=== PATIENT | female | born 1955 | race Caucasian/White ===

== ENCOUNTER 2018-04-17 10:37 | Emergency (ER) | payer MEDICARE, MEDICAID ==
[~2018-04-17] VITALS: Ht 162.6 cm; Wt 64.0 kg
[2018-04-17] MEDS ORDERED: KETOROLAC 60MG/2ML VIAL IM ONE (12:30)
[2018-04-17] MEDS ORDERED: ACETAMINOPHEN 325MG TABLET PO ONE (12:30)
[2018-04-17 13:12] LABS: HEMATOCRIT. 33.7 % (36.0-48.0); HEMOGLOBIN. 11.5 g/dL (12.0-16.0); MEAN CORPUSCULAR HEMOGLOBIN 29.8 pg (28.0-32.0); MEAN CORPUSCULAR VOLUME 87.3 fL (81.0-99.0); MEAN PLATELET VOLUME 8.5 fl (7.4-10.4); PLATELET 205 x1000/uL (130-400); RED BLOOD CELL COUNT 3.87 mill/uL (4.2-5.4); RED CELL DISTRIBUTION WIDTH 14.1 % (11.6-14.6)
[2018-04-17 13:26] LABS: PLATELET ESTIMATE NORMAL
[2018-04-17 14:55] VITALS: BP 100/56
== END 2018-04-17 14:57 | disposition home or self-care (01) ==
LOC: ER 10:37
DX: M06.9 Rheumatoid arthritis, unspecified (principal); E78.00 Pure hypercholesterolemia, unspecified; I10 Essential (primary) hypertension; Z88.0 Allergy status to penicillin
CPT/HCPCS: 36415; 73130; 73660; 84550; 85025; 96372; 99285; J1885